=== PATIENT | male | born 1985 | race Caucasian/White ===

== ENCOUNTER 2016-07-13 21:35 | Emergency (ER) | payer BC, OTHER ==
[~2016-07-13] VITALS: Ht 177.8 cm; Wt 56.7 kg
[2016-07-13 21:37] VITALS: TEMP 36.5; Ht 177.8 cm; Wt 56.7 kg
[2016-07-13] MEDS ORDERED: PENI500T2 PO (22:24)
[2016-07-13] MEDS ORDERED: HYDR-5688 PO (22:24)
--- NOTE | 2016-07-13 22:24 | EMERGENCY ROOM VISIT NOTE ---
ED Visit Note First contact with patient: 21:58 CHIEF COMPLAINT: Right upper dental pain 2 days HISTORY OF PRESENT ILLNESS: Patient is a 31-year-old white male who presents the emergency department for evaluation of a possible "infected tooth." He states the tooth broke many years ago and he did see a dentist at that time, but was unable to afford the dental work. He states in the last couple days the tooth has become increasingly more painful, he is noted some swelling along the gumline. He denies any pus or foul tasting fluid in his mouth. No drainage or discharge from the area. He has been rinsing with follow-up at her and taking ibuprofen. He is a smoker. He does note some swelling in the left upper cheek as well. He denies fever. REVIEW OF SYSTEMS: Review of systems as per HPI. All other systems reviewed were negative. At least 6 systems reviewed. PMH: Electronic medical records are reviewed and summarized as above/below. See Problem List. SOCIAL HISTORY: Patient lives at home with his family. Smoker. PHYSICAL EXAM: Vital Signs: Reviewed Nurse's notes. CONSTITUTIONAL: Patient is a well-appearing 31-year-old white male who is awake and alert and in no acute distress. Vital signs are stable. EARS: Tympanic membranes intact, not inflamed, have normal contour. External canals clear. MOUTH: Overall the patient has poor dentition. The right upper bicuspid in question is grossly carious, fractured and decayed to the gumline. There is some swelling of the gumline, but no pointing or focal abscess that is drainable. Mucous membranes moist, no lesions, tongue and gums appear normal. THROAT: No pharyngeal injection, exudates, or tonsillar hypertrophy. Airway is patent. No trismus noted. FACE: There is slight swelling of the right upper cheek/lip. No cellulitic changes. NECK: No lymphadenopathy. ED course: The patient was seen and evaluated as above. Old records were reviewed. He will be placed on Pen-Vee K and [place], and was encouraged to follow up with a dentist for definitive care and management. He does not demonstrate any evidence for drainable abscess, facial cellulitis or Steve's angina. Current/Historical Medications Scheduled Penicillin V Potassium (Veetids), 500 MG PO QID Scheduled PRN Hydrocodone/Acetaminophen 5MG/325MG ([place] 5MG/325MG), 1-2 TABLETS PO Q4 PRN for Pain Miscellaneous Medications None (Patient States No Home Meds) Allergies Coded Allergies: No Known Allergies (Unverified Adverse Reaction, Unknown, 12/19/04) Vital Signs Date Time Temp Pulse Resp B/P Pulse Ox O2 Delivery O2 Flow Rate FiO2 07/13/16 22:35 84 16 128/70 99 07/13/16 21:37 36.5 73 18 135/61 100 Room Air Medications Administered Medications (Trade) Dose Ordered Sig/Shabana Route Start Time Stop Time Status Last Admin Dose Admin Penicillin V Potassium (Pen-Vk 500MG Home Pack) 1 homepack UD ONCE PO 07/13/16 22:30 07/13/16 22:31 DC 07/13/16 22:27 1 HOMEPACK Acetaminophen/ Hydrocodone Bitart ([place] 5/325mg Home Pack) 1 homepack UD ONCE PO 07/13/16 22:30 07/13/16 22:31 DC 07/13/16 22:27 1 HOMEPACK Departure Information Impression Primary Impression: Dental abscess Prescriptions Hydrocodone/Acetaminophen 5MG/325MG ([place] 5MG/325MG) Tab 1-2 TABLETS PO Q4 Y for Pain, #20 TAB For Initial Treatment Prov: Ashley Knapp PA 07/13/16 Penicillin V Potassium (VEETIDS) 500 Mg Tab 500 MG PO QID, #40 TAB Prov: Ashley Knapp PA 07/13/16 Referrals No Doctor, Assigned (PCP) Patient Instructions My [facility] Additional Instructions Penicillin 500mg: Take one pill four times daily for 10 days for your dental infection. All antibiotics can cause diarrhea. If this occurs and you feel worse or it does not resolve in 1-2 days follow up with your doctor or return to the Emergency Department as this could be signs of serious underlying problems. Any medication can cause an allergic reaction, stop the pills immediately and return to the ER for rash, hives, breathing difficulties, or swelling. Ibuprofen(Motrin, Advil) may be used for fever or pain. Use 600mg every six hours as needed. Take with food. Avoid using more than 2400mg in a 24 hour period. Do not use 2400mg per day for more than three consecutive days without physician direction. Prolonged inappropriate use can lead to stomach upset or ulcers. (AND/OR) Acetaminophen(Tylenol) may be used for fever or pain. Use 1000mg every six hours as needed. Avoid using more than 4000mg in a 24 hour period. Hydrocodone/Acetaminophen ([place]) 5/325 mg: Take 1-2 pills every four hours for breakthrough pain. Avoid alcohol, operating machinery or dangerous equipment, working on ladders or roofs, DRIVING, or situations where being under the influence may be dangerous. It is recommended to use an dtxb-[id number]-[id number] stool softener such as Colace, 100mg twice daily while taking this medication to avoid constipation. Saltwater gargles after meals and before bedtime. Soft foods. Orajel/Anbesol/clove oil as needed for discomfort. Followup with your dentist for definitive management. You may also follow up with your primary care physician for pain/care management until you can be seen by your dentist.
[2016-07-13] MEDS ORDERED: NORCO 5/325MG HOME PACK PO ONE (22:30)
[2016-07-13] MEDS ORDERED: PENICILLIN HOME PACK 500MG (4 DOSES)BTL PO ONE (22:30)
[2016-07-13 22:35] VITALS: BP 128/70; PULSE 84; O2SAT 99
== END 2016-07-13 22:36 | disposition home or self-care (01) ==
LOC: C.EDB 21:36 → C.EDA 22:36
DX: K04.7 Periapical abscess without sinus (principal); K02.9 Dental caries, unspecified; F17.210 Nicotine dependence, cigarettes, uncomplicated

== ENCOUNTER → 2016-08-10 | Outpatient (CLI) | payer BC ==
[~2016-08-10] MED LIST: HYDR-5688 PO; OXYC-57 PO
== END | disposition home or self-care (01) ==
LOC: C.PATHSPEC 17:00
PROVIDERS: ATTEND Dentist Oral and Maxillofacial Surgery
DX: K04.8 Radicular cyst (principal)

== ENCOUNTER 2017-03-09 06:29 | Emergency (ER) | payer BC ==
[~2017-03-09] VITALS: Ht 177.8 cm; Wt 55.4 kg
[2017-03-09 06:33] VITALS: TEMP 36.9; Ht 177.8 cm; Wt 55.4 kg
[2017-03-09] MEDS ORDERED: LIDOCAINE/EPINEPH/TETRACAINE 1 EA SYR EXT STA (07:12)
[2017-03-09] MEDS ORDERED: XYLOCAINE 1%/SOD BICARB 20 ML VIAL INFIL ONE (07:15)
[2017-03-09] MEDS ORDERED: MoRPHine SULFATE 10 MG/ML CARP/VIAL IM STA (07:34)
--- NOTE | 2017-03-09 07:38 | DIAGNOSTIC IMAGING REPORT ---
L SHOULDER MIN 2 VIEWS ROUTINE CLINICAL HISTORY: Left shoulder pain status post trauma COMPARISON: None DISCUSSION: No fractures or dislocations of the proximal humerus are visualized. There is a fracture of the mid clavicle. The medial fragment is displaced just in excess of 1 shaft width with respect to the lateral fragment. IMPRESSION: Displaced mid left clavicular fracture. Electronically signed by: Curtis Ramsay M.D. 03/09/2017 7:37 AM Dictated Date/Time: 03/09/2017 7:36 AM
--- NOTE | 2017-03-09 07:39 | DIAGNOSTIC IMAGING REPORT ---
L CLAVICLE CLINICAL HISTORY: Left clavicle pain status post trauma COMPARISON: None. DISCUSSION: There is acute fracture of the left mid clavicular shaft. The medial fragment is displaced just in excess of 1 full shaft with respect to the lateral fragment. IMPRESSION: Displaced mid left clavicular fracture. Electronically signed by: Curtis Ramsay M.D. 03/09/2017 7:38 AM Dictated Date/Time: 03/09/2017 7:37 AM
[2017-03-09] MEDS ORDERED: OXYC-57 PO ×2 (08:07→13:50)
[2017-03-09 08:20] VITALS: BP 119/79; PULSE 80; O2SAT 99
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
== END 2017-03-09 08:21 | disposition home or self-care (01) ==
LOC: C.EDB 06:31
DX: S42.022A Displaced fracture of shaft of left clavicle, initial encounter for closed fracture (principal); S81.012A Laceration without foreign body, left knee, initial encounter; V20.4XXA Motorcycle driver injured in collision with pedestrian or animal in traffic accident, initial encounter; Y92.488 Other paved roadways as the place of occurrence of the external cause; S40.212A Abrasion of left shoulder, initial encounter

== ENCOUNTER → 2017-03-10 | Day surgery (SDC) | payer BC ==
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
[2017-03-09 13:50] VITALS: Ht 177.8 cm; Wt 59.1 kg
[~2017-03-10] VITALS: Ht 177.8 cm; Wt 59.1 kg
[~2017-03-10] MED LIST changes: +ATROPINE SULFATE 0.1 MG/ML 5ML SYR IV PRN; +BUPIVACAINE/EPINEPHRINE 0.5% MPF 1:200,000 30 ML VIAL ONE; +CEFAZOLIN 2000 MG/60 ML D5W IV SCH; +EpHEDrine SULFATE 50MG/5ML SYR ONE; +EpHEDrine SULFATE INJ 50 MG/ML AMP IV PRN; +FENTANYL CITRATE INJ 50 MCG/1 ML 2 ML VIAL ONE; +FLUMAZENIL 0.1 MG/1 ML 10 ML VIAL IV PRN; +GLYCOPYRROLATE INJ 0.2 MG/ML VIAL ONE; -HYDR-5688 PO; +HYDROmorphone INJ 1 MG/ML SYR IV PRN; +LACTATED RINGER'S 1000ML 1,000 ML IV SCH; +LIDOCAINE HCL 2% 2 ML VIAL (20MG/ML) ONE; +MIDAZOLAM HCL 1 MG/ML 2ML VIAL ONE; +MoRPHine SULFATE 2 MG/ML CARP IV PRN; +MoRPHine SULFATE 4 MG/ML 1 ML CARP\\VIAL IV PRN; +NALOXONE HCL 0.4 MG/1 ML VIAL/CARP IV PRN; +NEOSTIGMINE METHYLSULFATE 5 MG/5 ML SYR ONE; +ONDANSETRON INJ 2 MG/ML 2 ML VIAL IV PRN; +OXYCODONE/ACETAMINOPHEN 5-325 TAB PO PRN; +PROMETHAZINE HCL INJ 12.5 MG in SODIUM CHLORIDE 0.9% 50ML 50 ML IV PRN; +PROPOFOL IV EMULSION 10 MG/ML 20 ML VIAL IV ONE; +SODIUM CHLORIDE 0.9% 1000ML 1,000 ML IV SCH
--- NOTE | 2017-03-10 09:46 | History & Physical Bridge - SC ---
H&P Re-Evaluation Bridge Note: I have examined the patient, reviewed the History & Physical and in the interval since the performance of the History & Physical I have noted the following changes of clinical significance: No changes noted
--- NOTE | 2017-03-10 11:56 | [facility] Post Operative Brief Note ---
Immediate Operative Summary Operative Date Mar 10, 2017. Pre-Operative Diagnosis Left Clavicle Fracture Post-Operative Diagnosis Same as pre-op Procedure(s) Performed Left Clavicle Fracture Open Reduction Internal Fixation Surgeon Dr. Aguilar Planning Consultant Surgeon(s) Dr. Archer Estimated Blood Loss 25ML Findings clavicle fracture reduced and fixed with 7 hole plate and 6 bicortical 3.5 mm screws Fluids (cc crystalloids) 1200 Specimens None Anesthesia GETA with local Complication(s) None Disposition Recovery Room / PACU
--- NOTE | 2017-03-10 12:08 | Discharge Instructions ---
Discharge Instructions Date of Service Mar 10, 2017. Admission Reason for Admission: Left Clavicle Fracture, Displaced Discharge Discharge Diagnosis / Problem: s/p ORIF L clavicle fx Discharge Goals Goal(s): Decrease discomfort, Improve function, Increase independence Activity Recommendations Activity Limitations: per Instructions/Follow-up section Lifting Limitations: none Exercise/Sports Limitations: until after follow-up appointment May Resume Sexual Activity: after follow-up appointment Shower/Bathe: tomorrow (do not remove dressing) Driving or Machine Use: Weightbearing Status: Left non-weightbearing (upper extremity) . Instructions / Follow-Up Instructions / Follow-Up Post-operative Instructions Dear Patient and Family/Friends, Before you are discharged from the hospital, it is important to know what to expect when you get home after surgery. To that end, we have created this sheet of discharge instructions which covers many commonly asked questions. Make sure you go through this sheet in its entirety with your nurse before you are discharged. Please note that we will go over the specifics of your surgery and recovery when you return for your first post-operative visit. Sincerely, Dr. Aguilar Pain Expect to be in a fair amount of pain after surgery. Remember, our goal is not to eliminate your pain, but to make it tolerable. It is a good idea to stay ahead of your pain by taking the medications you were prescribed once you get home. Typically, the pain starts improving 3-7 days after surgery. You should start weaning off the narcotic pain medication (oxycodone, hydrocodone, hydromorphone, morphine) as soon as your pain improves. Please call our office if your pain is not adequately controlled. Ice Ice your operative site at least 5 times a day for 15-30 minutes at a time. Make sure you have a thin cloth between the ice or cooling unit and your skin to prevent stewart bite. This is especially important if you received a nerve block. Continue icing your operative site for the first 5-7 days after surgery , then as needed. Diet/Nausea/Vomiting Start by drinking clear liquids and eating crackers. If you can tolerate this, then you may resume your normal diet. If you feel nauseated or vomit, take Zofran/ondansetron (if prescribed). Please call our office if you have intractable nausea or vomiting, or, if after hours, you may go to the Emergency Room for help. Constipation Constipation is a common side effect of narcotic pain medication. If you have not had a bowel movement within 2 days after surgery, we recommend purchasing an over the counter laxative such as Milk of Magnesia, Dulcolax, or Miralax from a local pharmacy, and taking it as instructed. Call our clinic if any questions. Slings and Braces If you were placed in a sling or brace, it must be worn at all times, including sleep. You may remove your sling or brace for physical therapy, home exercises , and showering. The length of time you will be in your brace and range of motion restrictions depends on what surgery you had; these details will be reviewed at your first post-operative appointment. Nerve block The anesthesia team sometimes places a nerve block to help with post-operative pain control. This results in significant numbness and inability to move the extremity. The nerve block usually wears off in 8-12 hours, but sometimes can last up to 24 hours. Please call our office if you are still unable to move your extremity after 24 hours, unless you received a pain pump to take home. Nerve blocks typically wear off quickly, so start taking pain medication as soon as you start feeling soreness near your surgical site. Weight bearing and Range of Motion. Do not bear any weight through your operative extremity immediately after surgery. If you had upper extremity surgery, do not lift anything with that arm. If you are in a knee brace, keep it locked in place until your follow-up. We will discuss your weight bearing, range of motion, and lifting restrictions in detail at your first post-operative appointment. Continuous Passive Motion (CPM) Machine If you were prescribed a CPM machine, it will start after your first post- operative appointment, at which time we will give you instructions on the range of motion settings and duration of treatment Physical therapy You will be given a prescription for physical therapy or occupational therapy at your first post-operative appointment. Typically, patients start therapy within 1 week of surgery Wound care and showering We will inspect your wound at your first post-operative visit, and may do a dressing change at that time. Most patients will be in a water-proof dressing that is removed 14 days after surgery. It is normal to see some dried blood on the dressing. Do not remove your dressing, paper strips or sutures yourself unless you are given permission. Showering is allowed the day after surgery. Do not scrub or remove any dressings. The wound should not be submerged underwater (i.e. in a bathtub or pool) until 4 weeks after surgery JUAN J stockings If you were given white stockings, these are to be worn at all times except to shower (on both legs) for the first 2 weeks after surgery. Driving You may not drive while taking narcotic pain medication or while in a cast, splint, sling or brace. You, the patient, need to make the final determination about when you are safe to drive, however, the earliest you may consider driving after surgery is below Hand/Wrist/Elbow Surgery: 3 days Shoulder Surgery: 2 weeks Hip, Knee, and Ankle Surgery: 4 weeks Fracture repair: 6 weeks Return to Work Your return to work depends on what surgery was done and what type of work you do. Please bring any paperwork your employer needs completed to your first post -operative visit. Also, bring a description of your job duties, as this helps us to understand what risks you may face at work. Travel Avoid long distance travel (greater than 1 hour) in airplanes and cars for the first 6 weeks after surgery. If you must travel, you need to have a Doppler ultrasound done before you travel to rule out a blood clot in your legs. Follow-up You should have a follow-up appointment already scheduled 1-2 days after surgery. If not, please contact our office to make this appointment before you leave the hospital. When to call the office It is normal to have swelling and bruising in the limb that was operated on. This will improve with time. It is also normal to have fevers for the first 2 days after surgery. Reasons you should call your doctor include: Uncontrolled pain; Nausea, vomiting, or constipation that does not improve with medication; Fevers over 101.5, chills, sweats; Drainage or bleeding from the wound; Foul odor; Spreading areas of redness; Any other concerns Current Hospital Diet Patient's current hospital diet: Discharge Diet Recommended Diet: Regular Diet Procedures Procedures Performed: Left Clavicle Fracture Open Reduction Internal Fixation Pending Studies Studies pending at discharge: no Medical Emergencies . Who to Call and When: Medical Emergencies: If at any time you feel your situation is an emergency, please call 911 immediately. . Non-Emergent Contact Non-Emergency issues call your: Primary Care Provider Call Non-Emergent contact if: temperature is above 101.5, your pain is not controlled, wound has increased redness, wound has increased pain . "Provider Documentation" section prepared by Matthew Aguilar. . VTE Core Measure Inpt VTE Proph given/why not?: Treatment not indicated [place] Drug Monitoring Program Search Results: patient reviewed within database, no issues identified
--- NOTE | 2017-03-10 12:12 | [facility] Operative Report ---
Operative Report Operative Date Mar 10, 2017. Pre-Operative Diagnosis Left Clavicle Fracture Post-Operative Diagnosis Same as pre-op Procedure(s) Performed Left Clavicle Fracture Open Reduction Internal Fixation Surgeon Dr. Aguilar Branch Lending Manager Surgeon(s) Dr. Archer: Jordi Gunderson PA-C Estimated Blood Loss 25ML Findings Displaced Left clavicle fracture Fluids (cc crystalloids) 1200 Specimens None Complication(s) None Disposition Recovery Room / PACU I attest to the content of the Intraoperative Record and any orders documented therein. Any exceptions are noted below.
[2017-03-10 13:01] VITALS: TEMP 36
--- NOTE | 2017-03-10 13:04 | Anesthesia Progress Nt - [facility] ---
Anesthesia Post Op Note Date & Time Mar 10, 2017 at 13:04 Vital Signs Pain Intensity: 2 Vital Signs Past 12 Hours Date Time Temp Pulse Resp B/P (MAP) Pulse Ox O2 Delivery O2 Flow Rate FiO2 03/10/17 12:51 112/65 03/10/17 12:50 58 19 03/10/17 12:50 60 19 99 03/10/17 12:50 36.7 53 17 112/65 99 Room Air 03/10/17 12:46 113/61 03/10/17 12:45 62 21 03/10/17 12:45 60 21 97 03/10/17 12:41 109/64 03/10/17 12:40 64 19 03/10/17 12:40 64 19 98 03/10/17 12:36 111/68 03/10/17 12:35 61 17 03/10/17 12:35 62 17 99 03/10/17 12:31 113/63 03/10/17 12:30 61 15 03/10/17 12:30 58 15 99 03/10/17 12:26 117/70 03/10/17 12:25 58 19 03/10/17 12:25 58 19 100 03/10/17 12:21 113/64 03/10/17 12:20 54 12 03/10/17 12:20 53 12 100 03/10/17 12:16 115/62 03/10/17 12:15 58 13 03/10/17 12:15 58 13 100 03/10/17 12:11 96/71 03/10/17 12:10 61 13 100 03/10/17 12:10 62 13 03/10/17 12:06 113/64 03/10/17 12:05 55 12 100 03/10/17 12:05 55 12 03/10/17 12:01 116/68 03/10/17 12:00 36.5 66 8 116/68 100 Mask 6 03/10/17 08:46 37.3 66 16 113/77 (89) 97 Room Air Notes Mental Status: alert / awake / arousable, participated in evaluation Pt Amnestic to Procedure: Yes Nausea / Vomiting: adequately controlled Pain: adequately controlled Airway Patency, RR, SpO2: stable & adequate BP & HR: stable & adequate Hydration State: stable & adequate Anesthetic Complications: no major complications apparent
[2017-03-10 13:40] VITALS: BP 115/69; PULSE 62; O2SAT 98
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
== END | disposition home or self-care (01) ==
LOC: X.SURG 08:17
PROVIDERS: ATTEND Orthopaedic Surgery
DX: S42.022A Displaced fracture of shaft of left clavicle, initial encounter for closed fracture (principal); V29.9XXA Motorcycle rider (driver) (passenger) injured in unspecified traffic accident, initial encounter; F17.200 Nicotine dependence, unspecified, uncomplicated; Z79.899 Other long term (current) drug therapy; Z98.818 Other dental procedure status

== ENCOUNTER → 2017-04-21 | Outpatient (CLI) | payer BC ==
[~2017-04-21] MED LIST changes: -ATROPINE SULFATE 0.1 MG/ML 5ML SYR IV PRN; -BUPIVACAINE/EPINEPHRINE 0.5% MPF 1:200,000 30 ML VIAL ONE; -CEFAZOLIN 2000 MG/60 ML D5W IV SCH; -EpHEDrine SULFATE 50MG/5ML SYR ONE; -EpHEDrine SULFATE INJ 50 MG/ML AMP IV PRN; -FENTANYL CITRATE INJ 50 MCG/1 ML 2 ML VIAL ONE; -FLUMAZENIL 0.1 MG/1 ML 10 ML VIAL IV PRN; -GLYCOPYRROLATE INJ 0.2 MG/ML VIAL ONE; -HYDROmorphone INJ 1 MG/ML SYR IV PRN; -LACTATED RINGER'S 1000ML 1,000 ML IV SCH; -LIDOCAINE HCL 2% 2 ML VIAL (20MG/ML) ONE; -MIDAZOLAM HCL 1 MG/ML 2ML VIAL ONE; -MoRPHine SULFATE 2 MG/ML CARP IV PRN; -MoRPHine SULFATE 4 MG/ML 1 ML CARP\\VIAL IV PRN; -NALOXONE HCL 0.4 MG/1 ML VIAL/CARP IV PRN; -NEOSTIGMINE METHYLSULFATE 5 MG/5 ML SYR ONE; -ONDANSETRON INJ 2 MG/ML 2 ML VIAL IV PRN; -OXYCODONE/ACETAMINOPHEN 5-325 TAB PO PRN; -PROMETHAZINE HCL INJ 12.5 MG in SODIUM CHLORIDE 0.9% 50ML 50 ML IV PRN; -PROPOFOL IV EMULSION 10 MG/ML 20 ML VIAL IV ONE; -SODIUM CHLORIDE 0.9% 1000ML 1,000 ML IV SCH
== END | disposition home or self-care (01) ==
LOC: C.RDSM 17:01
PROVIDERS: ATTEND Orthopaedic Surgery
DX: T14.8XXA Other injury of unspecified body region, initial encounter (principal); X58.XXXA Exposure to other specified factors, initial encounter